=== PATIENT | male | born 1970 | race Caucasian/White ===

== ENCOUNTER → 2021-04-03 | Day surgery (SDC) | payer OTHER ==
[~2021-04-03] MED LIST: CRESTOR10 MG PO; PROTONIX 40 MG40 M1 PO; VITAMIN B-121000 MC3 PO; VITAMIN D3125 MCG PO
== END | disposition home or self-care (01) ==
LOC: OR 07:04
DX: Z12.11 Encounter for screening for malignant neoplasm of colon (principal); E78.5 Hyperlipidemia, unspecified; E53.8 Deficiency of other specified B group vitamins; E55.9 Vitamin D deficiency, unspecified; Z20.822 Contact with and (suspected) exposure to COVID-19; G89.29 Other chronic pain; R10.13 Epigastric pain; N40.0 Benign prostatic hyperplasia without lower urinary tract symptoms
CPT/HCPCS: J2704; J7030

== ENCOUNTER → 2021-04-04 | Outpatient (CLI) | payer OTHER | LOC: US 09:30 | DX: R10.84 Generalized abdominal pain (principal); R14.0 Abdominal distension (gaseous); K76.0 Fatty (change of) liver, not elsewhere classified | CPT/HCPCS: 76705 ==